=== PATIENT | female | born 1990 | race Caucasian/White ===

== ENCOUNTER 2017-12-27 18:59 | Emergency (ER) | payer BC ==
[~2017-12-27] VITALS: Ht 157.4 cm; Wt 61.2 kg
[~2017-12-27 18:59] MED LIST: ZITHROMAX TRI-500 MG PO
== END 2017-12-27 19:46 | disposition home or self-care (01) ==
LOC: ED 18:59
DX: S01.511A Laceration without foreign body of lip, initial encounter (principal); W51.XXXA Accidental striking against or bumped into by another person, initial encounter; Y93.89 Activity, other specified; Y92.89 Other specified places as the place of occurrence of the external cause; Y99.8 Other external cause status

== ENCOUNTER → 2019-01-13 | Outpatient (CLI) | payer OTHER | END | disposition home or self-care (01) | LOC: LAB 07:47 | DX: R73.09 Other abnormal glucose (principal) ==